=== PATIENT | male | born 1995 | race African-American/Black ===

== ENCOUNTER 2018-04-06 01:41 | Emergency (ER) | payer OTHER, SELFPAY ==
[2018-04-06] MEDS ORDERED: Ketorolac Tromethamine 60 MG/2 ML VIAL ONE (02:25)
== END 2018-04-06 02:50 | disposition home or self-care (01) ==
LOC: ERS 01:41
DX: K02.9 Dental caries, unspecified (principal); K03.81 Cracked tooth; F32.9 Major depressive disorder, single episode, unspecified; F17.210 Nicotine dependence, cigarettes, uncomplicated
CPT/HCPCS: 96372; J1885

== ENCOUNTER 2018-07-14 10:32 | Emergency (ER) | payer OTHER, SELFPAY ==
[2018-07-14 11:25] LABS: #Basophils 0.1 thou/uL (0.0-0.2); #Lymphocytes 1.8 thou/uL (1.20-3.40); #Monocytes 0.3 thou/uL (0.11-0.59); #Neutrophils 2.5 thou/uL (1.40-6.50); %Basophils 1.1 % (0.0-1.0); %Eosinophils 0.9 % (0.0-10.0); %Lymphocytes 37.5 % (21.0-51.0); %Monocytes 7.2 % (0.0-10.0); %Neutrophils 53.3 % (42.0-75.0); Hemoglobin 15.9 g/dL (14.0-18.0); Mean Corpuscular HGB CONC 33.1 g/dL (32.0-36.0); Mean Corpuscular Hemoglobin 30.5 pg (27.0-31.0); Mean Corpuscular Volume 91.9 fL (78.0-98.0); Mean Platelet Volume 7.5 fL (7.4-10.4); Platelet Count 206 thou/uL (130-400); RBC Distribution Width 12.2 % (11.5-14.5); Red Blood Cell (RBC) Count 5.22 mill/uL (4.70-6.10); White Blood Cell (WBC) Count 4.8 thou/uL (4.8-10.8)
[2018-07-14 11:44] LABS: ALT (SGPT) 24 U/L (8-55); AST (SGOT) 21 U/L (5-34); Albumin 4.7 g/dL (3.5-5.0); Alkaline Phosphatase 46 U/L (40-150); Anion Gap 12 mmol/L (10-20); BUN (Urea Nitrogen) 11 mg/dL (8.9-20.6); Bilirubin, Total 1.1 mg/dL (0.2-1.2); Calc. Creatinine Clearance 0 mL/min (70-130); Calcium 10.5 mg/dL (7.8-10.44); Carbon Dioxide 27 mmol/L (22-29); Chloride 104 mmol/L (98-107); Estimated GFR-MDRD Greater than 90; Glucose 92 mg/dL (70-105); Potassium 3.8 mmol/L (3.5-5.1); Protein, Total 7.7 g/dL (6.0-8.3); Sodium 139 mmol/L (136-145)
[2018-07-14 11:49] LABS: CKMB 1.4 ng/mL (0-6.6); Troponin I Less than 0.010 ng/mL (< 0.028)
== END 2018-07-14 11:43 | disposition home or self-care (01) ==
LOC: ERS 10:32
DX: R00.2 Palpitations (principal); F41.9 Anxiety disorder, unspecified; F32.9 Major depressive disorder, single episode, unspecified; F17.210 Nicotine dependence, cigarettes, uncomplicated
CPT/HCPCS: 36415; 80053; 82553; 84484; 85025; 93005

== ENCOUNTER 2018-07-16 22:50 | Emergency (ER) | payer SELFPAY ==
--- NOTE | 2018-07-16 23:23 | RAD ---
AP VIEW CHEST: 07/16/18 HISTORY: Dyspnea. AP view chest is obtained. The lungs are well aerated. No evidence of active intrathoracic disease se en. No evidence of effusions, pneumonia or pneumothorax seen. IMPRESSION: Unremarkable AP view chest. POS: [id number]
== END 2018-07-16 23:20 | disposition home or self-care (01) ==
LOC: ERS 22:50
DX: F41.9 Anxiety disorder, unspecified (principal); F32.9 Major depressive disorder, single episode, unspecified; F17.210 Nicotine dependence, cigarettes, uncomplicated
CPT/HCPCS: 71045; 93005

== ENCOUNTER 2020-12-21 19:17 | Emergency (ER) | payer BC, SELFPAY ==
[2020-12-21] MEDS ORDERED: Ketorolac Tromethamine 30 MG/ML VIAL ONE (19:25)
[2020-12-21] MEDS ORDERED: Fentanyl 100 MCG/2 ML VIAL ONE (19:25)
[2020-12-21] MEDS ORDERED: Midazolam HCl 2 mg/2 ml Vial ONE (19:35)
[2020-12-21] MEDS ORDERED: Boostrix 0.5 ML (Tdap) VIAL ONE (19:36)
== END 2020-12-21 21:36 ==
LOC: ERS 19:17
DX: T20.20XA Burn of second degree of head, face, and neck, unspecified site, initial encounter (principal); T22.20XA Burn of second degree of shoulder and upper limb, except wrist and hand, unspecified site, initial encounter; T24.002A Burn of unspecified degree of unspecified site of left lower limb, except ankle and foot, initial encounter; T31.0 Burns involving less than 10% of body surface; F17.210 Nicotine dependence, cigarettes, uncomplicated; X04.XXXA Exposure to ignition of highly flammable material, initial encounter
CPT/HCPCS: 71045; 90471; 90715; 96374; 96375; J1885; J2250; J3010

== ENCOUNTER 2023-07-07 01:05 | Emergency (ER) | payer BC, SELFPAY ==
[2023-07-07 06:06] LABS: SARS-CoV-2 NAA Rapid Test Not Detected (NotDetected)
== END 2023-07-07 04:00 | disposition home or self-care (01) ==
LOC: ERS 01:05
DX: B34.9 Viral infection, unspecified (principal); F17.290 Nicotine dependence, other tobacco product, uncomplicated; Z20.822 Contact with and (suspected) exposure to COVID-19
CPT/HCPCS: 99283